=== PATIENT | female | born 1995 | race African-American/Black ===

== ENCOUNTER 2023-06-20 10:08 | Outpatient (REF) | payer MEDICAID, SELFPAY ==
[2023-06-20 14:50] LABS: MANUAL DIFF FLAG NO
[2023-06-20 14:56] LABS: Basophils Absolute Auto 0.1 X10*3/uL (0.0-0.2); Basophils Percent Auto 0.6 % (0-2); Eosinophils Absolute Auto 0.3 X10*3/uL (0.0-0.4); Eosinophils Percent Auto 3.5 % (0-4); Hematocrit 35.9 % (37.0-47.0); Hemoglobin 11.3 g/dl (12.0-16.0); Imm Gran Abs Auto 0.02 X10*3/uL (0.00-0.03); Imm Gran Pct Auto 0.2 % (0.0-0.4); Lymphocytes Absolute Auto 2.1 X10*3/uL (1.2-4.9); Lymphocytes Percent Auto 24.6 % (20-40); Mean Corpuscular HGB Conc 31.5 g/dl (31.0-35.0); Mean Corpuscular Hemoglobin 25.9 pg (27.0-33.0); Mean Corpuscular Volume 82.2 fL (80.0-98.0); Mean Platelet Volume 10.4 fL (9.4-12.3); Monocytes Absolute Auto 0.6 X10*3/uL (0.1-1.2); Monocytes Percent Auto 6.8 % (2-11); Neutrophils Absolute Auto 5.6 x10*3/uL (2.0-8.3); Neutrophils Percent Auto 64.3 % (45-73); Platelet Count 353 X10*3/uL (160-400); Red Blood Count 4.37 X10*6/uL (4.20-5.50); Red Cell Distribution Width 13.6 % (11.0-16.0); White Blood Count 8.6 X10*3/uL (4.8-10.8)
[2023-06-20 15:32] LABS: D Dimer High Sensitivity 598 NG/ML
== END 2023-06-20 10:09 | disposition home or self-care (01) ==
LOC: HO.CHCLDS 10:08
PROVIDERS: Visit Provider Internal Medicine
DX: R06.02 Shortness of breath (principal)
CPT/HCPCS: 36415; 85025; 85379

== ENCOUNTER 2023-08-21 08:47 | Outpatient (REF) | payer OTHER, SELFPAY ==
[2023-08-21 11:20] LABS: MANUAL DIFF FLAG NO
[2023-08-21 11:30] LABS: Basophils Percent Auto 0.6 % (0-2); Eosinophils Absolute Auto 0.3 X10*3/uL (0.0-0.4); Eosinophils Percent Auto 4.3 % (0-4); Hematocrit 33.6 % (37.0-47.0); Hemoglobin 10.3 g/dl (12.0-16.0); Imm Gran Abs Auto 0.01 X10*3/uL (0.00-0.03); Imm Gran Pct Auto 0.1 % (0.0-0.4); Lymphocytes Absolute Auto 2.6 X10*3/uL (1.2-4.9); Lymphocytes Percent Auto 37.8 % (20-40); Mean Corpuscular HGB Conc 30.7 g/dl (31.0-35.0); Mean Corpuscular Hemoglobin 24.9 pg (27.0-33.0); Mean Corpuscular Volume 81.2 fL (80.0-98.0); Mean Platelet Volume 10.9 fL (9.4-12.3); Monocytes Absolute Auto 0.5 X10*3/uL (0.1-1.2); Monocytes Percent Auto 6.9 % (2-11); Neutrophils Absolute Auto 3.5 x10*3/uL (2.0-8.3); Neutrophils Percent Auto 50.3 % (45-73); Platelet Count 263 X10*3/uL (160-400); Red Blood Count 4.14 X10*6/uL (4.20-5.50); Red Cell Distribution Width 13.4 % (11.0-16.0)
[2023-08-21 11:47] LABS: Anion Gap 14 (12-20); Blood Urea Nitrogen 11 mg/dL (9-16); Calcium 9.8 mg/dL (8.4-10.2); Carbon Dioxide 25 mmol/L (22-29); Chloride 109 mmol/L (96-108); Estimated Glomerular Filt Rate > 60; Glucose Fasting 68 mg/dL (60-99); Potassium 3.7 mmol/L (3.3-5.1); Sodium 144 mmol/L (135-145)
[2023-08-21 11:59] LABS: HIV AB/AG Nonreactive (Nonreactive); HIV Num 1 0.07 S/CO (0.00-0.99)
[2023-08-21 13:15] LABS: CT PCR NOT DETECTED (Not Detect.); NG PCR NOT DETECTED (Not Detect.)
== END 2023-08-21 08:48 | disposition home or self-care (01) ==
LOC: HO.HHCL 08:47
PROVIDERS: Visit Provider Internal Medicine
DX: Z11.4 Encounter for screening for human immunodeficiency virus [HIV] (principal); Z11.3 Encounter for screening for infections with a predominantly sexual mode of transmission; R10.31 Right lower quadrant pain
CPT/HCPCS: 0353U; 36415; 80048; 85025; 87389

== ENCOUNTER 2023-09-20 13:53 | Outpatient (REF) | payer OTHER, SELFPAY ==
--- NOTE | ~2023-09-20 | CT_ITS ---
EXAMINATION: CT ABDOMEN AND PELVIS WITH CONTRAST CLINICAL INFORMATION: Right lower quadrant abdominal pain COMPARISON: None available. TECHNIQUE: Multidetector volumetric images were obtained from the superior aspect of the liver through the pubic symphysis following administration 85 mL of Omnipaque 350 intravenous contrast. Sagittal and coronal reformatted images were obtained on the technologist's workstation. Oral contrast: No This CT examination was performed using dose optimization techniques as appropriate, variously including the following: *Automated exposure control *Adjustment of mA and/or kV according to patient size (this includes techniques or standardized protocols for targeted exams where dose is matched to indication/reason for exam; i.e. extremities or head) *Use of iterative reconstruction technique DLP: 806 mGy-cm FINDINGS: LUNG BASES: The visualized lung bases are unremarkable. LIVER, GALLBLADDER, AND BILIARY TREE: The liver is mildly enlarged at 17 cm in cephalocaudad dimension. No focal hepatic lesion or biliary ductal dilatation is present. The gallbladder is not seen. PANCREAS: Unremarkable. SPLEEN: Unremarkable. ADRENAL GLANDS: Unremarkable. KIDNEYS AND URETERS: The kidneys are normal in size, shape, and attenuation. No hydronephrosis, hydroureter, or calculi seen. No perinephric stranding. BLADDER: Unremarkable. GASTROINTESTINAL TRACT: The small and large bowel are unremarkable. The appendix is unremarkable. ABDOMINAL WALL: No significant hernia is appreciated. LYMPH NODES: No retroperitoneal lymphadenopathy. A phlebolith is noted in the right pelvis near the UVJ VASCULAR: Unremarkable. PELVIC VISCERA: An anteverted retroflexed uterus is present. A small amount of free fluid is present in the cul-de-sac. An abnormal adnexal mass is not seen. OSSEOUS STRUCTURES: Unremarkable. CT/CT abdomen pelvis w IV con IMPRESSION: 1. A cause for the patient's right lower quadrant pain has not been found. The appendix is normal. 2. Incidental note made of mild hepatomegaly and a small amount of free fluid in the cul-de-sac. Fleischner guidelines were followed.
[2023-09-20] MEDS: Barium Sulfate Oral (Vanilla) 450 ML ORAL.SUSP 900 ML PO (17:02)
[2023-09-20] MEDS: iohexoL 350 MG/ML 100 ML INFUS..BTL 85 ML IV (17:05)
== END 2023-09-20 13:54 | disposition home or self-care (01) ==
LOC: HO.CT 13:53
PROVIDERS: PCP Internal Medicine; Visit Provider Internal Medicine
DX: R10.31 Right lower quadrant pain (principal)
CPT/HCPCS: 74177; Q9967

== ENCOUNTER 2023-10-30 15:43 | Outpatient (REF) | payer OTHER, SELFPAY ==
[2023-10-30 17:33] LABS: Hematocrit 34.4 % (37.0-47.0); Hemoglobin 10.9 g/dl (12.0-16.0); Mean Corpuscular HGB Conc 31.7 g/dl (31.0-35.0); Mean Corpuscular Hemoglobin 24.7 pg (27.0-33.0); Mean Corpuscular Volume 77.8 fL (80.0-98.0); Mean Platelet Volume 10.1 fL (9.4-12.3); Platelet Count 295 X10*3/uL (160-400); Red Blood Count 4.42 X10*6/uL (4.20-5.50); Red Cell Distribution Width 14.4 % (11.0-16.0); White Blood Count 7.4 X10*3/uL (4.8-10.8)
== END 2023-10-30 15:44 | disposition home or self-care (01) ==
LOC: HO.CHCLDS 15:43
PROVIDERS: Visit Provider Internal Medicine
DX: D50.9 Iron deficiency anemia, unspecified (principal)
CPT/HCPCS: 36415; 85027

== ENCOUNTER 2024-01-08 15:33 | Outpatient (REF) | payer OTHER, SELFPAY ==
[2024-01-09 03:36] LABS: Syphilis Screen Nonreactive (Nonreactive)
[2024-01-09 04:10] LABS: HIV AB/AG Nonreactive (Nonreactive); HIV Num 1 0.04 S/CO (0.00-0.99)
[2024-01-11 00:04] LABS: C. trachomatis RNA TMA NOT DETECTED (NOT DETECTED); N. gonorrhoeae RNA TMA NOT DETECTED (NOT DETECTED); Trichomonas (NAAT) NOT DETECTED (NOT DETECTED)
== END 2024-01-08 15:34 | disposition home or self-care (01) ==
LOC: HO.CHCLDS 15:33
PROVIDERS: Visit Provider Advanced Practice Midwife
DX: Z11.3 Encounter for screening for infections with a predominantly sexual mode of transmission (principal); Z12.4 Encounter for screening for malignant neoplasm of cervix
CPT/HCPCS: 36415; 86780; 87389; 87491; 87591; 87661; 88142

== ENCOUNTER 2024-06-11 14:46 | Outpatient (AMB) | payer OTHER, SELFPAY ==
--- NOTE | 2024-06-11 14:49 | MHC.OFFVIS ---
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 Patient reports her wrist randomly started hurting on the radial aspect and she is unsure of what caused it. She says writing, lifting, and certain movements such as opening doors and waterbottles exacerbate her pain. She reports intermittent tingling in this area. OTC medication offers her relief some days but others it may not. Denies previous treatment or trauma. 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 The patient reports that there was no particular incident or injury that caused this pain to occur, and then she just noticed it developing 1 day. The patient reports that this pain is primarily located from the base of the thumb extending into the forearm, and worsens with any heavy lifting with the right hand. The patient was previously placed in a large thumb spica splint by the primary care provider, the patient states that it was okay if she comes out of this at this time, as she finds it cumbersome and uncomfortable. Patient denies any numbness or tingling in the right hand. No other acute complaints or concerns at this time. [facility] Social History (Updated 06/11/24 @ 14:52 by JENNIFER Camilo) Alcohol intake: former Patient Tobacco Use Status: Never used Tobacco service: No Current occupational status: unemployed Current occupation: right handed Review of Systems Const All systems reviewed & are unremarkable except as noted in HPI and below Physical Exam Vital Signs: BMI result Body Mass Index 31.9 Extrem Other: Patient is alert, oriented, and in no acute distress. Neuro: Normal sensation of the tips of all digits of the right hand at this time Vascular: Cap refill brisk Pain: Patient reports mild tenderness to palpation of the right radial styloid No tenderness to palpation of the ulnar styloid, dorsal or volar wrist, basal joint, or MCP joint of the right thumb ROM: Patient is able to make a closed fist and extend all digits of the right hand fully Skin: No lacerations or abrasions. General: No ecchymosis, erythema, or evidence of infection. Positive Deisy test on the right Psych: Appears grossly normal Affect normal Attitude cooperative Assessment & Plan Assessment & Plan (1) De Quervain's tenosynovitis, right: Code(s): M65.4 - Radial styloid tenosynovitis [de Quervain] Category: Medical Plan 1. De Quervain tenosynovitis, right Ongoing for approximately 1 month Patient is educated about this condition Patient is educated about the treatment options available in the typical recovery course, namely conservative management, injections, or surgery if these measures prove ineffective Patient would like to proceed with conservative management 1st to see if this helps to alleviate her discomfort without the need for injections or surgery Patient was told that she can discontinue use of the large thumb spica brace Patient was provided with a comfort cool thumb spica splint to be worn with daytime activities Patient is also referred to occupational hand therapy for range of motion and strengthening of the right hand for treatment of right de Quervain tenosynovitis Patient was amenable to this plan Patient will follow-up in 6-8 weeks if still experiencing symptoms to discuss further treatment options, sooner with any acute concerns Orders: Orders OT Evaluation and Treatment Today M65.4 - Radial styloid tenosynovitis [de Quervain] Coding Level of Care Code New Pt Level 3 (14117) Diagnoses De Quervain's tenosynovitis, right M65.4
[2024-06-11 14:50] VITALS: BMI 31.9
== END 2024-06-11 15:33 | disposition home or self-care (01) ==
PROVIDERS: PCP Internal Medicine
DX: M65.4 Radial styloid tenosynovitis [de Quervain] (principal)
CPT/HCPCS: 99203

== ENCOUNTER → 2024-06-11 14:46 | Outpatient (BNVA) | payer OTHER, SELFPAY | PROVIDERS: PCP Internal Medicine | DX: M65.4 Radial styloid tenosynovitis [de Quervain] (principal) | CPT/HCPCS: 99202 ==

== ENCOUNTER 2024-07-25 08:02 | Outpatient (RCR) | payer OTHER, SELFPAY ==
--- NOTE | 2024-06-18 13:59 | MHC.OT.EP ---
[address] [phone] Occupational Therapy Plan of Care Patient Name: Hannah Moffett Date of Evaluation: 06/18/24 Diagnosis: Pain Location: Pain Score: Pain Scale Used: Aggravating Factors: Alleviating Factors: Assessment: Pt is a 28 yr. 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 In the last mos she reports having pain on the radial side of her R wrist and thumb. She reports the pain is worse at the end of the day, but is constant. She denies numbness and tingling. She presents today w/ a (-) phalens, (-) tinels, and a positive Finklestein. She has wasting of her thenar eminence an pain w/ ROM of her wrist and thumb. 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 Thank you once again for your referral.
--- NOTE | 2024-07-25 08:31 | MHC.OT.DC ---
[address] [phone] F: [phone] Occupational Therapy Discharge Note Patient Name: Hannah Fowlerison-Mock Provider: Jim Manning Diagnosis: (R) DeQuervain Tenosynovitis Date of Surgery: Date of Evaluation: 06/18/24 Date of Discharge: Treatments to Date: 10 Cancellations to Date: No Shows to Date: Discharge Status: Discharge Summary: Pt tolerated therapy well today; she has MET her goals we reviewed HEP and joint protection today. She has an excellent understanding of her capabilities and is in agreement w/ d/charge from therapy today Electronically Signed By: Dot Scott OTR/L Reviewed/agree with student documentation: N/A Therapist: Jazmin Beaver OTR/Adrien Please Sign and return to therapist, thank you for your referral.
== END 2024-07-25 08:32 | disposition home or self-care (01) ==
LOC: HO.OT 08:02
PROVIDERS: PCP Internal Medicine
DX: M65.4 Radial styloid tenosynovitis [de Quervain] (principal)
CPT/HCPCS: 29130; 97033; 97035; 97110; 97140; 97165; 97535